=== PATIENT | female | born 1995 | race Caucasian/White ===

== ENCOUNTER → 2016-07-23 | Outpatient (CLI) | payer BC | END | disposition home or self-care (01) | LOC: GMAJ 14:22 | PROVIDERS: ATTEND Family Medicine | DX: Z79.899 Other long term (current) drug therapy (principal); F33.0 Major depressive disorder, recurrent, mild ==

== ENCOUNTER → 2016-10-01 | Outpatient (CLI) | payer BC, SELFPAY ==
--- NOTE | 2016-10-02 08:15 | RAD ---
EXAM DESCRIPTION: Ankle,Left 3 Views CLINICAL HISTORY: PAIN IN LEFT ANKLE COMPARISON: None. IMPRESSION: 3 views of the left ankle show no evidence of acute fracture, focal bone destruction, or joint dislocation. Small os trigonum is incidentally noted. Mild soft tissue swelling over the lateral malleolus is seen.. Electronically signed by: Phillip Melissa MD 10/02/2016 8:14 AM CDT
== END | disposition home or self-care (01) ==
LOC: RAD 15:45
PROVIDERS: ATTEND Nurse Practitioner Family
DX: M25.579 Pain in unspecified ankle and joints of unspecified foot (principal)

== ENCOUNTER 2019-08-09 03:53 | Emergency (ER) | payer OTHER, BC ==
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
[2019-08-09 05:40] VITALS: BP 130/92; TEMP 98.1; O2SAT 100
== END 2019-08-09 05:40 | disposition home or self-care (01) ==
LOC: ER 03:53
DX: S20.212A Contusion of left front wall of thorax, initial encounter (principal); F10.929 Alcohol use, unspecified with intoxication, unspecified; R07.89 Other chest pain; V89.2XXA Person injured in unspecified motor-vehicle accident, traffic, initial encounter; Y92.410 Unspecified street and highway as the place of occurrence of the external cause